=== PATIENT | female | born 1955 | race Caucasian/White ===

== ENCOUNTER 2017-04-29 19:16 | Inpatient (IN) | payer MEDICARE, BC ==
[~2017-04-29] VITALS: Ht 170.2 cm; Wt 96.2 kg
[2017-04-29] MEDS ORDERED: PROTONIX 40 MG40 M1 PO (20:51)
[2017-04-29] MEDS ORDERED: KOMBIGLYZE XR1 EAC2 PO (20:51)
[2017-04-29] MEDS ORDERED: PRAVASTATIN SOD80 MG PO (20:52)
[2017-04-29] MEDS ORDERED: NEURONTIN 300300 MG PO (20:54)
[2017-04-29] MEDS ORDERED: T:SLIM1 EACH SQ (20:55)
[2017-04-29] MEDS ORDERED: PRISTIQ ER50 MG PO (20:56)
[2017-04-29] MEDS ORDERED: TRAMADOL HCL50 MG PO (20:56)
[2017-04-29 21:03] LABS: HEMOGLOBIN 8.9 gm/dl (12.3-15.3)
[2017-04-30 03:28] LABS: HEMOGLOBIN 8.2 gm/dl (12.3-15.3); RED BLOOD COUNT 2.89 M/UL (4.00-5.10); WHITE BLOOD COUNT 7.3 K/UL (4.5-11.0)
[2017-04-30 03:47] LABS: BUN/CREATININE RATIO 39 (0-10)
[2017-05-01 05:05] LABS: HEMOGLOBIN 8.6 gm/dl (12.3-15.3); RED BLOOD COUNT 2.9 M/UL (4.00-5.10); WHITE BLOOD COUNT 8.4 K/UL (4.5-11.0)
[2017-05-01 05:13] LABS: BUN/CREATININE RATIO 24 (0-10)
[2017-05-02] MEDS ORDERED: NADOLOL20 MG PO (16:19)
[2017-05-02] MEDS ORDERED: LACTULOSE10 GM/15 M PO (16:22)
== END 2017-05-02 17:20 | disposition home or self-care (01) | DRG 378 ==
LOC: CCU 19:16 → M/S 20:31
PROVIDERS: Internal Medicine Gastroenterology; Internal Medicine Infectious Disease; ADMIT Hospitalist
PROC: 0DJ08ZZ Inspection of Upper Intestinal Tract, Via Natural or Artificial Opening Endoscopic (ICD-10-PCS; principal; 2017-04-30 09:46)
DX: K92.2 Gastrointestinal hemorrhage, unspecified (principal); D62 Acute posthemorrhagic anemia; K76.6 Portal hypertension; D61.818 Other pancytopenia; I85.00 Esophageal varices without bleeding; K92.0 Hematemesis; K74.60 Unspecified cirrhosis of liver; K75.81 Nonalcoholic steatohepatitis (NASH); R10.12 Left upper quadrant pain; E66.9 Obesity, unspecified; E10.42 Type 1 diabetes mellitus with diabetic polyneuropathy; Z96.41 Presence of insulin pump (external) (internal); R01.1 Cardiac murmur, unspecified; E78.00 Pure hypercholesterolemia, unspecified; K22.70 Barrett's esophagus without dysplasia; K31.89 Other diseases of stomach and duodenum; D69.6 Thrombocytopenia, unspecified; E78.5 Hyperlipidemia, unspecified; G47.33 Obstructive sleep apnea (adult) (pediatric); Z79.4 Long term (current) use of insulin; R06.00 Dyspnea, unspecified; Z79.84 Long term (current) use of oral hypoglycemic drugs; Z79.899 Other long term (current) drug therapy; Z82.49 Family history of ischemic heart disease and other diseases of the circulatory system; Z99.81 Dependence on supplemental oxygen; Z68.33 Body mass index [BMI] 33.0-33.9, adult
CPT/HCPCS: ECHO; 36415; 80048; 80053; 82550; 82553; 82962; 83036; 84484; 85014; 85018; 85027; 86850; 86900; 86901; 86920; 93005; 93306; 94660; C9113; J2250; J2270; J3010; J7030; J7040; J7050

== ENCOUNTER → 2022-03-14 | Outpatient (CLI) | payer MEDICARE ==
[~2022-03-14] MED LIST: KOMBIGLYZE XR1 EAC2 PO; LACTULOSE10 GM/15 M PO; NADOLOL20 MG PO; NEURONTIN 300300 MG PO; PRAVASTATIN SOD80 MG PO; PRISTIQ ER50 MG PO; PROTONIX 40 MG40 M1 PO; T:SLIM1 EACH SQ; TRAMADOL HCL50 MG PO
== END ==
LOC: KOH-I 13:28
DX: S82.61XD Displaced fracture of lateral malleolus of right fibula, subsequent encounter for closed fracture with routine healing (principal)
CPT/HCPCS: 73610; 73630

== ENCOUNTER → 2022-04-05 | Outpatient (CLI) | payer MEDICARE | LOC: EXRD 13:44 | DX: Z13.820 Encounter for screening for osteoporosis (principal) | CPT/HCPCS: 77080 ==

== ENCOUNTER → 2022-04-14 | Outpatient (CLI) | payer MEDICARE | LOC: KOH-I 11:25 | DX: S82.61XA Displaced fracture of lateral malleolus of right fibula, initial encounter for closed fracture (principal); X58.XXXA Exposure to other specified factors, initial encounter | CPT/HCPCS: 73610 ==